=== PATIENT | male | born 1960 | race Caucasian/White ===

== ENCOUNTER 2016-09-12 06:10 | Inpatient (IN) | payer MEDICAID, OTHER ==
[~2016-09-12] VITALS: Ht 182.9 cm; Wt 102.7 kg
[2016-09-12] VITALS (10 sets, daily range): BP systolic 77–121; BP diastolic 58–73; PULSE 107–126; RESP 18–20; TEMP 96.6–97.3; O2SAT 87–100
[~2016-09-12 06:10] MED LIST: EPINEPHrine HCL (1:10,000) 1 MG/10 ML SYRINGE IV ONE; NOREPINEPHRINE 4 MG/4 ML AMP IV ONE; SODIUM BICARBONATE 8.4% INJ 50 MEQ/50 ML SYR IV ONE
[2016-09-12] MEDS ORDERED: ONDANSETRON HCL 4 MG/2 ML VIAL ONE (06:15)
[2016-09-12] MEDS ORDERED: PROPOFOL 1000 MG/100 ML INJ 100 ML ONE (06:33)
[2016-09-12 06:34] LABS: BASOPHIL % 0.3 % (0.0-2.0); EOSINOPHIL # 0.2 TH/MM3 (0-0.4); EOSINOPHIL % 1.3 % (0.0-4.0); HEMATOCRIT 33.4 % (39.0-51.0); HEMO FLAGS DIFF FINAL; I-STAT POTASSIUM 3.2 MMOL/L (3.5-4.9); LYMPH % 19.1 % (9.0-44.0); LYMPHOCYTE # 2.9 TH/MM3 (1.0-4.8); MEAN CELL VOLUME 88.8 FL (80.0-100.0); MEAN CORPUSCULAR HEMOGLOBIN 31.1 PG (27.0-34.0); MONO % 6.8 % (0.0-8.0); NEUT % 72.5 % (16.0-70.0); PLATELET COUNT 298 TH/MM3 (150-450); RED BLOOD COUNT 3.76 MIL/MM3 (4.50-5.90); RED CELL DISTRIBUTION WIDTH 13.3 % (11.6-17.2); WHITE BLOOD COUNT 15.2 TH/MM3 (4.0-11.0)
[2016-09-12] MEDS ORDERED: fentaNYL CITRATE 250 MCG/5 ML AMP ONE (06:41)
[2016-09-12 06:45] LABS: INTERNATIONAL NORMALIZED RATIO 1.1 RATIO; PROTHROMBIN TIME - PATIENT 12.3 SEC (9.8-11.6)
[2016-09-12 06:46] LABS: APTT (PATIENT) 23.1 SEC (24.3-30.1)
[2016-09-12] MEDS ORDERED: DIPHTH/TETANUS/ACEL PERTUSSIS (BOOSTER) 0.5 ML VIAL/PFS IM ONE (06:49)
[2016-09-12] MEDS ORDERED: ceFAZolin 2 GM PREMIX 50 ML IV STA (06:50)
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
[2016-09-12] MEDS ORDERED: SODIUM CHLOR 0.9% 1000 ML INJ 1,000 ML IV ONE (07:00)
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
[2016-09-12] MEDS ORDERED: TRANEXAMIC ACID INJ 1,000 MG/10 ML AMP ONE ×2 (07:11→07:14)
[2016-09-12] MEDS ORDERED: IOHEXOL 350 MG/ML 10 ML VIAL (for RAD DIAG) IV ONE (07:17)
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
[2016-09-12 07:46] LABS: BLOOD GAS BASE EXCESS -5.8 mmol/L (-2-2); BLOOD GAS CARBOXYHEMOGLOBIN 1.5 % (0-4); BLOOD GAS HCO3 20 mmol/L (22-26); BLOOD GAS METHEMOGLOBIN 2.3 % (0-2); BLOOD GAS O2 HGB SATURATION 96 % (90-100); BLOOD GAS OXYGEN CONTENT 17.8 Vol % (12.0-20.0); BLOOD GAS PCO2 46 mmHg (38-42); BLOOD GAS PO2 510 mmHG (61-120); BLOOD GAS TOTAL HGB 12.2 G/DL (12.0-16.0); CRITICAL VALUE YES; DRAW SITE RT FEMORAL; FIO2 100 %; NUMBER OF ARTERIAL PUNCTURES 1; OXYGEN DEVICE VENTILATOR; STAT YES; TEMP CORR TO 98.6; VENT SETTINGS AC 600/12/+5PEEP
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
[2016-09-12] MEDS ORDERED: TERBUTALINE INJ 1 MG/ML AMP SQ PRN (08:45)
[2016-09-12 08:59] LABS: HEMATOCRIT 30.9 % (39.0-51.0); MEAN CELL VOLUME 84.9 FL (80.0-100.0); MEAN CORPUSCULAR HEMOGLOBIN 29.3 PG (27.0-34.0); MEAN CORPUSCULAR HGB CONC 34.6 % (32.0-36.0); PLATELET COUNT 57 TH/MM3 (150-450); RED BLOOD COUNT 3.64 MIL/MM3 (4.50-5.90); RED CELL DISTRIBUTION WIDTH 14.9 % (11.6-17.2)
[2016-09-12] MEDS: NOREPINEPHRINE-DEXTROSE DRIP 250 ML IV SCH ×3 (09:00→15:00)
[2016-09-12 09:10] LABS: BLOOD GAS BASE EXCESS -4.7 mmol/L (-2-2); BLOOD GAS HCO3 20 mmol/L (22-26); BLOOD GAS METHEMOGLOBIN 1.1 % (0-2); BLOOD GAS O2 HGB SATURATION 97 % (90-100); BLOOD GAS OXYGEN CONTENT 14.5 Vol % (12.0-20.0); BLOOD GAS PCO2 35 mmHg (38-42); BLOOD GAS PO2 154 mmHg (61-120); BLOOD GAS TOTAL HGB 10.4 G/DL (12.0-16.0); CRITICAL VALUE NO; OXYGEN DEVICE VENTILATOR; TEMP CORR TO 98.6
[2016-09-12 09:12] LABS: REVIEW FLAG FINAL
[2016-09-12 09:14] LABS: DRAW SITE ART LINE; FIO2 50 %; STAT NO
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
[2016-09-12 09:19] LABS: CALCIUM-PROTEIN CORRECTED 8.8 MG/DL (8.5-10.1); POTASSIUM 3.6 MEQ/L (3.5-5.1); TOTAL BILIRUBIN ADULT 0.6 MG/DL (0.2-1.0)
--- NOTE | 2016-09-12 09:36 | PD.PROCEDR ---
Procedure Note Procedure DATE: 09/12/2016 ARTERIAL LINE PLACEMENT: Right axillary artery. Ultrasound-guided INDICATION: Hemodynamic access CONSENT Informed consent for procedure was obtained. DESCRIPTION OF THE PROCEDURE The patient was placed in supine position. The skin was cleansed with Chloraprep. Additional barrier precautions included large sterile drape, sterile gloves, sterile gown, face mask, and hat. 1 % lidocaine was used for local anesthesia. Under direct ultrasound guidance and on first attempt, the right axillary artery was accessed with an introducer needle. The guide wire was advanced. Using Seldinger technique a 20 Cambodian arterial catheter was advanced to a depth of 12 centimeters. The guide wire was removed. The single port had return of bright red pulsatile blood and flushed easily with saline. The arterial line was secured with 2.0 silk. A sterile dressing with antibiotic disc was applied. ESTIMATED BLOOD LOSS: Minimal COMPLICATIONS: No apparent complications. Tab Berkowitz MD Sep 12, 2016 09:36
--- NOTE | 2016-09-12 09:53 | EC ---
Study Study Date:09/12/2016 STUDY CONCLUSIONS SUMMARY - Left ventricle: The cavity size was normal. Wall thickness was increased in a pattern of mild LVH. Systolic function was normal. The estimated ejection fraction was in the range of 65% to 70%. - Mitral valve: Mild regurgitation. - Tricuspid valve: There was a large, mobile echo-density on the tricuspid valve, concerning for thrombus. Mild regurgitation. - Pulmonary arteries: PA peak pressure: 34mm Hg (S). - Pericardium, extracardiac: There was a left pleural effusion. If LV function is below 40, please consider prescribing an ACEI or ARB or document rationale for non-use. PROCEDURE DATA STUDY STATUS: Elective. Procedure: Transthoracic echocardiography. Image quality was fair. The study was technically limited due to poor acoustic window availability. Scanning was performed from the parasternal, apical, and subcostal acoustic windows. Study completion: The patient tolerated the procedure well. Transthoracic echocardiography. M-mode, complete 2D, complete spectral Doppler, and color Doppler. Patient status: Inpatient. CARDIAC ANATOMY LEFT VENTRICLE: The cavity size was normal. Wall thickness was increased in a pattern of mild LVH. Systolic function was normal. The estimated ejection fraction was in the range of 65% to 70%. AORTIC VALVE: The valve appears to be grossly normal. Probably trileaflet. Doppler: There was no stenosis. No significant regurgitation. Valve area: 2.13cm^2 (Vmax). Peak gradient: 18mm Hg (S). MITRAL VALVE: The valve appears to be grossly normal. Doppler: There was no evidence for stenosis. Mild regurgitation. LEFT ATRIUM: The atrium was normal in size. RIGHT VENTRICLE: The cavity size was normal. PULMONIC VALVE: The valve appears to be grossly normal. Doppler: There was no evidence for stenosis. No significant regurgitation. TRICUSPID VALVE: There was a large, mobile echo-density on the tricuspid valve, concerning for thrombus. Doppler: There was no evidence for stenosis. Mild regurgitation. PERICARDIUM: There was no pericardial effusion. Pleura: There was a left pleural effusion. BASIC MEASUREMENTS ADULT NORMAL Left ventricle LV internal dimension, ED, chordal level, *34.8 mm 43-52 PLAX LV internal dimension, ES, chordal level, 25.6 mm 23-38 PLAX Fractional shortening, chordal level, PLAX *26 % >29 LV posterior wall thickness, ED 10.8 mm IVS/LVPW ratio, ED 1.05 <1.3 Ventricular septum Septal thickness, ED 11.3 mm Aortic valve Leaflet separation 24 mm 15-26 BASIC MEASUREMENTS ADULT NORMAL Aortic valve Leaflet separation 24 mm 15-26 Aorta Root diameter, ED 27 mm 20-37 Left atrium Anterior-posterior dimension, ES 26 mm 19-40 LA/aortic root ratio 0.96 DOPPLER MEASUREMENTS ADULT NORMAL Main pulmonary artery Pressure, S *34 mm Hg =30 Aortic valve Peak velocity, S 212 cm/s Peak gradient, S 18 mm Hg Valve area, Vmax 2.13 cm^2 Mitral valve Peak E-wave velocity 57.8 cm/s Peak A-wave velocity 67.6 cm/s Deceleration time *130 ms 150-230 Peak E/A ratio 0.9 Maximal regurgitant velocity 263 cm/s Tricuspid valve Regurgitant peak velocity 243 cm/s Peak RV-RA gradient, S 24 mm Hg Maximal regurgitant velocity 243 cm/s Right ventricle RV pressure, S *34 mm Hg <30 LEGEND: Mean values are shown as u=mean value. Asterisk (*) angelo values outside specified normal range. Amended Jaswant Cabello [id number]
[2016-09-12 10:49] LABS: APTT (PATIENT) 71.7 SEC (24.3-30.1); PROTHROMBIN TIME - PATIENT GREATER THAN 180.0 SEC (9.8-11.6)
[2016-09-12 10:52] LABS: INTERNATIONAL NORMALIZED RATIO GREATER THAN 14.5 RATIO
[2016-09-12 11:17] LABS: BLOOD GAS BASE EXCESS -11.7 mmol/L (-2-2); BLOOD GAS CARBOXYHEMOGLOBIN 0.5 % (0-4); BLOOD GAS HCO3 14 mmol/L (22-26); BLOOD GAS METHEMOGLOBIN 0.8 % (0-2); BLOOD GAS O2 HGB SATURATION 98 % (90-100); BLOOD GAS OXYGEN CONTENT 15.6 Vol % (12.0-20.0); BLOOD GAS PCO2 32 mmHg (38-42); BLOOD GAS PO2 207 mmHg (61-120); TEMP CORR TO 98.6
[2016-09-12 11:18] LABS: CRITICAL VALUE YES; OXYGEN DEVICE VENT
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
[2016-09-12 11:19] LABS: DRAW SITE ARTLINE; FIO2 50 %; VENT SETTINGS PRVC/12/600/PEEP5
[2016-09-12] MEDS: LACTATED RINGER'S 1000 ML INJ 1,000 ML IV SCH ×4 (11:30→17:00)
[2016-09-12 11:31] LABS: HEMATOCRIT 33.2 % (39.0-51.0); REVIEW FLAG FINAL
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
[2016-09-12] MEDS ORDERED: GLUCAGON 1 MG/ML VIAL OTHER PRN (12:00)
[2016-09-12] MEDS ORDERED: RESP: ALBUTEROL 2.5 MG/IPRATROPIUM 0.5 MG NEB (PRN) NEB (12:00)
[2016-09-12] MEDS ORDERED: ONDANSETRON HCL 4 MG/2 ML VIAL IV PUSH PRN (12:00)
[2016-09-12] MEDS ORDERED: DEXTROSE 50% IN WATER 50 ML VIAL(D50) IV PUSH PRN (12:00)
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
[2016-09-12] MEDS ORDERED: Gentamicin Consult Pharmacy 1 EA OTHER SCH (13:00)
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
[2016-09-12] MEDS: PANTOPRAZOLE SODIUM 40 MG VIAL IV PUSH SCH (13:19)
[2016-09-12] MEDS: fentaNYL DRIP 250 ML IV SCH (13:24)
[2016-09-12] MEDS: INSULIN ASPART SUPPLEMENTAL SCALE SQ SCH ×2 (14:00→21:00)
[2016-09-12] MEDS ORDERED: GENTAMICIN INJ 400 MG in SODIUM CHLORIDE 0.9% INJ 100 ML IV ONE (15:00)
[2016-09-12 15:03] LABS: MEAN CELL VOLUME 83.6 FL (80.0-100.0); MEAN CORPUSCULAR HEMOGLOBIN 28.8 PG (27.0-34.0); MEAN CORPUSCULAR HGB CONC 34.4 % (32.0-36.0); PLATELET COUNT 77 TH/MM3 (150-450); RED BLOOD COUNT 2.25 MIL/MM3 (4.50-5.90); RED CELL DISTRIBUTION WIDTH 15.7 % (11.6-17.2); WHITE BLOOD COUNT 9.7 TH/MM3 (4.0-11.0)
[2016-09-12 15:11] LABS: REVIEW FLAG FINAL
[2016-09-12 15:12] LABS: HEMATOCRIT 18.8 % (39.0-51.0)
[2016-09-12 15:36] LABS: APTT (PATIENT) 40.7 SEC (24.3-30.1); INTERNATIONAL NORMALIZED RATIO 1.3 RATIO; PROTHROMBIN TIME - PATIENT 15.1 SEC (9.8-11.6)
[2016-09-12] MEDS: RESP: ALBUTEROL 2.5 MG/IPRATROPIUM 0.5 MG NEB (SCH) NEB ×2 (16:00→20:53)
[2016-09-12] MEDS ORDERED: PROTHROMBIN COMPLEX CONC INJ 1,500 UNITS in SYRINGE/BAG 1 EA IV ONE (16:00)
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
[2016-09-12] MEDS ORDERED: DESMOPRESSIN ACETATE 4 MCG/ML VIAL IV PUSH ONE (18:00)
[2016-09-12] MEDS ORDERED: IODIXANOL 320 MG/ML 50 ML VIAL (for RAD SPEC) I-ARTERIAL ONE (18:06)
[2016-09-12] MEDS ORDERED: CHLORHEXIDINE GLUCONATE 2 % 1 PACK (2 CLOTHS) TOP PRN (18:45)
[2016-09-12] MEDS ORDERED: MAGNESIUM HYDROXIDE SUSP 30 ML CUP PO PRN (18:45)
[2016-09-12] MEDS ORDERED: MISCELLANEOUS NURSING INFORMATION XX SCH (18:45)
[2016-09-12] MEDS: CHLORHEXIDINE 0.12% (ORAL KIT) 15 ML CUP MT SCH (20:00)
[2016-09-12 20:24] LABS: BLOOD GAS BASE EXCESS -2.5 mmol/L (-2-2); BLOOD GAS CARBOXYHEMOGLOBIN 1.3 % (0-4); BLOOD GAS HCO3 23 mmol/L (22-26); BLOOD GAS METHEMOGLOBIN 0.8 % (0-2); BLOOD GAS O2 HGB SATURATION 85 % (90-100); BLOOD GAS OXYGEN CONTENT 10.7 Vol % (12.0-20.0); BLOOD GAS PCO2 52 mmHg (38-42); BLOOD GAS PO2 56 mmHg (61-120); BLOOD GAS TOTAL HGB 8.8 G/DL (12.0-16.0); CRITICAL VALUE YES; OXYGEN DEVICE VENTILATOR; TEMP CORR TO 98.6
[2016-09-12 20:25] LABS: DRAW SITE ART LINE; FIO2 100 %; STAT YES; VENT SETTINGS PRVC/AC
[2016-09-12] MEDS: DOCUSATE SODIUM 100 MG CAP PO SCH (20:37)
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
[2016-09-12 21:15] LABS: HEMATOCRIT 25.6 % (39.0-51.0); MEAN CELL VOLUME 81.7 FL (80.0-100.0); MEAN CORPUSCULAR HEMOGLOBIN 28.2 PG (27.0-34.0); MEAN CORPUSCULAR HGB CONC 34.5 % (32.0-36.0); PLATELET COUNT 58 TH/MM3 (150-450); RED BLOOD COUNT 3.13 MIL/MM3 (4.50-5.90); RED CELL DISTRIBUTION WIDTH 15.6 % (11.6-17.2); WHITE BLOOD COUNT 8.6 TH/MM3 (4.0-11.0)
[2016-09-12 21:19] LABS: REVIEW FLAG FINAL
[2016-09-12 21:23] LABS: APTT (PATIENT) 30.4 SEC (24.3-30.1); PROTHROMBIN TIME - PATIENT 11.6 SEC (9.8-11.6)
[2016-09-12] MEDS ORDERED: DEXTROSE 50% IN WATER 50 ML SYRINGE ONE (21:58)
[2016-09-12 21:59] LABS: BICARBONATE 25.6 MEQ/L (21.0-32.0); POTASSIUM 4.1 MEQ/L (3.5-5.1)
[2016-09-12 22:14] LABS: CALCIUM-PROTEIN CORRECTED 7.7 MG/DL (8.5-10.1); THYROXINE (T4) 3.5 MCG/DL (4.5-12.1)
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
[2016-09-12 22:31] LABS: BLOOD GAS BASE EXCESS -4.3 mmol/L (-2-2); BLOOD GAS CARBOXYHEMOGLOBIN 1.1 % (0-4); BLOOD GAS HCO3 21 mmol/L (22-26); BLOOD GAS METHEMOGLOBIN 0.8 % (0-2); BLOOD GAS O2 HGB SATURATION 88 % (90-100); BLOOD GAS OXYGEN CONTENT 10.7 Vol % (12.0-20.0); BLOOD GAS PCO2 46 mmHg (38-42); BLOOD GAS PO2 61 mmHg (61-120); BLOOD GAS TOTAL HGB 8.6 G/DL (12.0-16.0); CRITICAL VALUE YES; DRAW SITE ART LINE; FIO2 100 %; OXYGEN DEVICE VENTILATOR; TEMP CORR TO 98.6; VENT SETTINGS PC/AC
[2016-09-12 22:32] LABS: STAT YES
[2016-09-12 22:33] LABS: CKMB 38.8 NG/ML (0.5-3.6)
[2016-09-12 23:29] LABS: BLOOD GAS BASE EXCESS -2.9 mmol/L (-2-2); BLOOD GAS CARBOXYHEMOGLOBIN 1.1 % (0-4); BLOOD GAS HCO3 23 mmol/L (22-26); BLOOD GAS METHEMOGLOBIN 0.8 % (0-2); BLOOD GAS O2 HGB SATURATION 90 % (90-100); BLOOD GAS OXYGEN CONTENT 11.1 Vol % (12.0-20.0); BLOOD GAS PCO2 46 mmHg (38-42); BLOOD GAS PO2 65 mmHg (61-120); BLOOD GAS TOTAL HGB 8.7 G/DL (12.0-16.0); CRITICAL VALUE NO; OXYGEN DEVICE VENTILATOR; TEMP CORR TO 98.6; VENT SETTINGS BIPHASIC
[2016-09-12 23:30] LABS: DRAW SITE ART LINE; FIO2 100 %; STAT NO
[2016-09-13] VITALS (16 sets, daily range): BP systolic 80–99; BP diastolic 52–62; PULSE 79–124; RESP 20–25; TEMP 99.1–100.6; O2SAT 90–100
[2016-09-13 00:17] LABS: HEMATOCRIT 24.8 % (39.0-51.0); MEAN CELL VOLUME 81.2 FL (80.0-100.0); MEAN CORPUSCULAR HEMOGLOBIN 28.6 PG (27.0-34.0); MEAN CORPUSCULAR HGB CONC 35.2 % (32.0-36.0); PLATELET COUNT 64 TH/MM3 (150-450); RED BLOOD COUNT 3.06 MIL/MM3 (4.50-5.90); RED CELL DISTRIBUTION WIDTH 15.1 % (11.6-17.2); WHITE BLOOD COUNT 8.7 TH/MM3 (4.0-11.0)
[2016-09-13 00:24] LABS: REVIEW FLAG FINAL
[2016-09-13 00:34] LABS: APTT (PATIENT) 29.8 SEC (24.3-30.1); PROTHROMBIN TIME - PATIENT 11.6 SEC (9.8-11.6)
[2016-09-13 00:40] LABS: BLOOD GAS BASE EXCESS -4.7 mmol/L (-2-2); BLOOD GAS CARBOXYHEMOGLOBIN 1.2 % (0-4); BLOOD GAS HCO3 21 mmol/L (22-26); BLOOD GAS METHEMOGLOBIN 1.1 % (0-2); BLOOD GAS O2 HGB SATURATION 94 % (90-100); BLOOD GAS OXYGEN CONTENT 10.7 Vol % (12.0-20.0); BLOOD GAS PCO2 44 mmHg (38-42); BLOOD GAS PO2 83 mmHg (61-120); CRITICAL VALUE NO; OXYGEN DEVICE VENTILATOR; TEMP CORR TO 98.6
[2016-09-13 00:41] LABS: DRAW SITE ART LINE; FIO2 100 %; STAT NO; VENT SETTINGS APRV
[2016-09-13] MEDS ORDERED: [UNRECOGNIZED DRUG - REMARK] XX ONE (01:00)
[2016-09-13 01:24] LABS: BLOOD GAS VENOUS BASE EXCESS -12.9 mmol/L (-2-2); BLOOD GAS VENOUS HCO3 15 mmol/L (22-26); BLOOD GAS VENOUS O2 CONTENT 7.2 Vol % (9.0-17.0); BLOOD GAS VENOUS O2 HGB SAT 82 % (70-76); BLOOD GAS VENOUS PCO2 52 mmHg (44-48); BLOOD GAS VENOUS PO2 61 mmHg (35-40); CRITICAL VALUE YES; OXYGEN DEVICE VENTILATOR; TEMP CORR TO 98.6
[2016-09-13 01:25] LABS: DRAW SITE CORDIS; FIO2 100 %; STAT NO; VENT SETTINGS APRV
--- NOTE | 2016-09-13 02:04 | RADRPT ---
EXAM DATE/TIME: 09/13/2016 01:48 [facility] COMPARISON: CHEST SINGLE AP, September 12, 2016, 20:34. INDICATIONS : Trauma, chest contusion MEDICAL HISTORY : Unknown SURGICAL HISTORY : Unknown ENCOUNTER: Subsequent ACUITY: 2 days PAIN SCORE: Non-responsive. LOCATION: Bilateral chest FINDINGS: Single portable frontal view of the chest shows an endotracheal tube with the tip 2 cm cephalad to th e sahil. Nasogastric tube is coiled within the fundus of the stomach. A sheath is seen involving the right upper chest. Bibasilar parenchymal consolidation is new from the prior study. Suspected small posterior layering pleural effusions. Heart is normal in size. CONCLUSION: Suspected posterior layering small pleural effusions with bibasilar infiltrates. Jude Mast Jr., MD on September 13, 2016 at 2:01 Board Certified Radiologist. This report was verified electronically.
[2016-09-13] MEDS: CHLORHEXIDINE GLUCONATE 2 % 1 PACK (2 CLOTHS) TOP SCH (02:13)
[2016-09-13] MEDS: RESP: ALBUTEROL 2.5 MG/IPRATROPIUM 0.5 MG NEB (SCH) NEB ×4 (03:44→20:45)
[2016-09-13 04:18] LABS: HEMATOCRIT 24.3 % (39.0-51.0); MEAN CELL VOLUME 81.1 FL (80.0-100.0); MEAN CORPUSCULAR HGB CONC 34.5 % (32.0-36.0); PLATELET COUNT 64 TH/MM3 (150-450); RED CELL DISTRIBUTION WIDTH 15.7 % (11.6-17.2); WHITE BLOOD COUNT 11.8 TH/MM3 (4.0-11.0)
[2016-09-13 04:19] LABS: REVIEW FLAG FINAL
[2016-09-13 04:28] LABS: APTT (PATIENT) 30.4 SEC (24.3-30.1); INTERNATIONAL NORMALIZED RATIO 1.1 RATIO; PROTHROMBIN TIME - PATIENT 11.9 SEC (9.8-11.6)
[2016-09-13 04:47] LABS: BICARBONATE 25.1 MEQ/L (21.0-32.0); MAGNESIUM 1.2 MG/DL (1.5-2.5); POTASSIUM 4.6 MEQ/L (3.5-5.1)
[2016-09-13 05:15] LABS: CKMB 75.2 NG/ML (0.5-3.6)
[2016-09-13 05:16] LABS: CALCIUM-PROTEIN CORRECTED 7.8 MG/DL (8.5-10.1)
[2016-09-13] MEDS: INSULIN ASPART SUPPLEMENTAL SCALE SQ SCH ×4 (05:27→20:36)
[2016-09-13] MEDS: LACTATED RINGER'S 1000 ML INJ 1,000 ML IV SCH ×2 (05:27→14:47)
[2016-09-13 05:54] LABS: BLOOD GAS BASE EXCESS -2.9 mmol/L (-2-2); BLOOD GAS CARBOXYHEMOGLOBIN 0.8 % (0-4); BLOOD GAS HCO3 23 mmol/L (22-26); BLOOD GAS METHEMOGLOBIN 0.9 % (0-2); BLOOD GAS O2 HGB SATURATION 97 % (90-100); BLOOD GAS OXYGEN CONTENT 13.1 Vol % (12.0-20.0); BLOOD GAS PCO2 49 mmHg (38-42); BLOOD GAS PO2 124 mmHg (61-120); BLOOD GAS TOTAL HGB 9.5 G/DL (12.0-16.0); TEMP CORR TO 98.6
[2016-09-13 05:55] LABS: CRITICAL VALUE YES; OXYGEN DEVICE VENTILATOR
[2016-09-13 05:56] LABS: DRAW SITE ART LINE; FIO2 100 %; STAT NO; VENT SETTINGS APRV/BI
[2016-09-13] MEDS ORDERED: ICU - POTASSIUM PHOSPHATE 30 MMOL/NS 250 ML IV PRN ×2 (07:30)
[2016-09-13] MEDS ORDERED: ICU - MAGNESIUM SULFATE 2 GM/NS 100 ML IV PRN ×2 (07:30)
[2016-09-13] MEDS ORDERED: ICU - SODIUM PHOSPHATE 30 MMOL/NS 250 ML IV PRN ×2 (07:30)
[2016-09-13] MEDS ORDERED: ICU - D/C ICU ELECTROLYTE ORDERS XX PRN (07:30)
[2016-09-13] MEDS ORDERED: ICU - POTASSIUM CHLORIDE/AQUEOUS SOLN 20 MEQ/100 ML IVPB IV PRN (07:30)
[2016-09-13] MEDS ORDERED: ICU - CALL ORDERING PHYSICIAN XX PRN (07:30)
[2016-09-13] MEDS ORDERED: ICU - MAGNESIUM OXIDE 400 MG TAB PO PRN (07:30)
[2016-09-13] MEDS ORDERED: ICU - POTASSIUM CHLORIDE/AQUEOUS SOLN 40 MEQ/100 ML IVPB IV PRN (07:30)
[2016-09-13] MEDS ORDERED: ICU - MAGNESIUM SULFATE 4 GM/NS 100 ML IV PRN ×2 (07:30)
[2016-09-13] MEDS ORDERED: ICU - POTASSIUM CHLORIDE 10% LIQUID 40 MEQ/30 ML CUP PO PRN (07:30)
[2016-09-13] MEDS ORDERED: ICU - POTASSIUM PHOSPHATE MONOBASIC 500 MG TAB PO/TUBE PRN (07:30)
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
[2016-09-13] MEDS: CHLORHEXIDINE 0.12% (ORAL KIT) 15 ML CUP MT SCH ×2 (08:00→20:36)
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
[2016-09-13] MEDS: DOCUSATE SODIUM 100 MG CAP PO SCH ×2 (09:00→20:37)
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
[2016-09-13 09:05] LABS: HEMATOCRIT 22.4 % (39.0-51.0); MEAN CELL VOLUME 81.3 FL (80.0-100.0); MEAN CORPUSCULAR HEMOGLOBIN 27.7 PG (27.0-34.0); MEAN CORPUSCULAR HGB CONC 34.1 % (32.0-36.0); PLATELET COUNT 69 TH/MM3 (150-450); RED BLOOD COUNT 2.75 MIL/MM3 (4.50-5.90); RED CELL DISTRIBUTION WIDTH 15.6 % (11.6-17.2)
[2016-09-13 09:08] LABS: REVIEW FLAG FINAL
[2016-09-13 09:27] LABS: APTT (PATIENT) 32.1 SEC (24.3-30.1); INTERNATIONAL NORMALIZED RATIO 1.1 RATIO; PROTHROMBIN TIME - PATIENT 12.6 SEC (9.8-11.6)
[2016-09-13] MEDS ORDERED: FUROSEMIDE 20 MG/2 ML VIAL IV ONE (09:30)
[2016-09-13] MEDS ORDERED: SODIUM CHLOR 0.9% 250 ML INJ 250 ML IV ONE (09:30)
[2016-09-13] MEDS ORDERED: MAGNESIUM SULFATE 1 GM PREMIX 100 ML ONE ×2 (09:32→09:48)
[2016-09-13] MEDS ORDERED: CALCIUM GLUCONATE 10% 1 GM/10 ML VIAL ONE ×2 (09:33→16:13)
[2016-09-13 09:49] LABS: BLOOD GAS BASE EXCESS -2.2 mmol/L (-2-2); BLOOD GAS CARBOXYHEMOGLOBIN 1.1 % (0-4); BLOOD GAS HCO3 23 mmol/L (22-26); BLOOD GAS METHEMOGLOBIN 1.1 % (0-2); BLOOD GAS O2 HGB SATURATION 95 % (90-100); BLOOD GAS OXYGEN CONTENT 10.3 Vol % (12.0-20.0); BLOOD GAS PCO2 47 mmHg (38-42); BLOOD GAS PO2 90 mmHg (61-120); BLOOD GAS TOTAL HGB 7.7 G/DL (12.0-16.0); CRITICAL VALUE NO; OXYGEN DEVICE VENTILATOR; TEMP CORR TO 98.6
[2016-09-13 09:51] LABS: DRAW SITE ART LINE; FIO2 70 %; STAT NO
[2016-09-13] MEDS: fentaNYL DRIP 250 ML IV SCH (09:56)
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
[2016-09-13] MEDS ORDERED: MIDAZOLAM HCL 2 MG/2 ML VIAL ONE (10:09)
[2016-09-13] MEDS ORDERED: KETAMINE HCL 500 MG/5 ML VIAL ONE (10:09)
[2016-09-13] MEDS ORDERED: VANCOMYCIN HCL 1000 MG VIAL ONE (10:44)
[2016-09-13] MEDS ORDERED: ceFAZolin INJ 1,000 MG VIAL ONE (10:44)
[2016-09-13] MEDS ORDERED: BACITRACIN TOP OINT 15 GM TUBE ONE (10:44)
--- NOTE | 2016-09-13 10:46 | EKG ---
Date Performed: 09/13/2016 Time Performed: 05:07:50 PTAGE: 55 years EKG: Sinus tachycardia Generalized low QRS voltages Borderline ECG NO PREVIOUS TRACING DOCTOR: Jonah Harmon Interpretating Date/Time 09/13/2016 10:45:45
[2016-09-13] MEDS ORDERED: LACTATED RINGER'S 1000 ML INJ 1,000 ML IV ONE (12:00)
[2016-09-13 12:05] LABS: BLOOD GAS BASE EXCESS -2.9 mmol/L (-2-2); BLOOD GAS CARBOXYHEMOGLOBIN 1.3 % (0-4); BLOOD GAS HCO3 23 mmol/L (22-26); BLOOD GAS METHEMOGLOBIN 1.2 % (0-2); BLOOD GAS O2 HGB SATURATION 96 % (90-100); BLOOD GAS OXYGEN CONTENT 13.2 Vol % (12.0-20.0); BLOOD GAS PCO2 48 mmHg (38-42); BLOOD GAS PO2 129 mmHg (61-120); BLOOD GAS TOTAL HGB 9.6 G/DL (12.0-16.0); TEMP CORR TO 98.6
[2016-09-13 12:06] LABS: CRITICAL VALUE YES; OXYGEN DEVICE OR; STAT YES
[2016-09-13 13:23] LABS: MEAN CELL VOLUME 80.5 FL (80.0-100.0); MEAN CORPUSCULAR HGB CONC 33.6 % (32.0-36.0); PLATELET COUNT 73 TH/MM3 (150-450); RED CELL DISTRIBUTION WIDTH 17.8 % (11.6-17.2); WHITE BLOOD COUNT 13.3 TH/MM3 (4.0-11.0)
[2016-09-13 13:27] LABS: REVIEW FLAG FINAL
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
[2016-09-13 13:54] LABS: BLOOD GAS BASE EXCESS -3.1 mmol/L (-2-2); BLOOD GAS HCO3 22 mmol/L (22-26); BLOOD GAS O2 HGB SATURATION 94 % (90-100); BLOOD GAS OXYGEN CONTENT 13.3 Vol % (12.0-20.0); BLOOD GAS PCO2 47 mmHg (38-42); BLOOD GAS PO2 79 mmHg (61-120); BLOOD GAS TOTAL HGB 10.1 G/DL (12.0-16.0); TEMP CORR TO 98.6
[2016-09-13 13:55] LABS: CRITICAL VALUE NO; OXYGEN DEVICE VENTILATOR
[2016-09-13 13:56] LABS: DRAW SITE ART LINE; FIO2 65 %; STAT NO
[2016-09-13] MEDS: GENTAMICIN 80 MG PREMIX 100 ML IV SCH ×2 (13:57→20:36)
[2016-09-13] MEDS: PANTOPRAZOLE SODIUM 40 MG VIAL IV PUSH SCH (13:58)
[2016-09-13 14:01] LABS: BICARBONATE 23.5 MEQ/L (21.0-32.0); MAGNESIUM 1.7 MG/DL (1.5-2.5); POTASSIUM 4.8 MEQ/L (3.5-5.1)
[2016-09-13 14:16] LABS: APTT (PATIENT) 34.4 SEC (24.3-30.1); INTERNATIONAL NORMALIZED RATIO 1.1 RATIO; PROTHROMBIN TIME - PATIENT 12.7 SEC (9.8-11.6)
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
--- NOTE | 2016-09-13 15:25 | RADRPT ---
EXAM DATE/TIME: 09/13/2016 11:09 [facility] COMPARISON: No previous studies available for comparison. INDICATIONS : External fixator pelvis. MEDICAL HISTORY : None. SURGICAL HISTORY : None. ENCOUNTER: Subsequent ACUITY: 2 days PAIN SCORE: Non-responsive. LOCATION: Pelvis. FINDINGS: Examination of the pelvis demonstrates spot film showing some external fixation the pelvis but the fi xation apparatus is not completely identified. There is marked widening of the left sacroiliac joint. CONCLUSION: 1. Widening of the left sacroiliac joint. Spot films reveal placement of external fixation. Wilmer Benitez MD on September 13, 2016 at 15:22 Board Certified Radiologist. This report was verified electronically.
--- NOTE | 2016-09-13 15:29 | RADRPT ---
EXAM DATE/TIME: 09/13/2016 11:09 [facility] COMPARISON: No previous studies available for comparison. INDICATIONS : External fixator left ankle. MEDICAL HISTORY : None. SURGICAL HISTORY : None. ENCOUNTER: Subsequent ACUITY: 2 days PAIN SCORE: Non-responsive. LOCATION: Left ankle. FINDINGS: Two view exam was performed of the left ankle. There is a comminuted fracture of the distal tibia an d fibula with mild residual displacement on AP and lateral views. CONCLUSION: 1. Comminuted fracture distal tibia and fibula. Mild displacement. Wilmer Benitez MD on September 13, 2016 at 15:24 Board Certified Radiologist. This report was verified electronically.
[2016-09-13] MEDS ORDERED: CALCIUM GLUCONATE 10% 1 GM/10 ML VIAL IV PUSH ONE (15:30)
--- NOTE | 2016-09-13 15:30 | RADRPT ---
EXAM DATE/TIME: 09/13/2016 11:09 [facility] COMPARISON: No previous studies available for comparison. INDICATIONS : External fixator right wrist. MEDICAL HISTORY : None. SURGICAL HISTORY : None. ENCOUNTER: Subsequent ACUITY: 2 days PAIN SCORE: Non-responsive. LOCATION: Right wrist. FINDINGS: Spot films reveal comminuted fracture of the distal radius and ulna with intra-articular extension. E xternal fixation present. Fracture fragments remain mildly displaced. CONCLUSION: 1. Comminuted fractures of distal radius and ulna. Wilmer Benitez MD on September 13, 2016 at 15:28 Board Certified Radiologist. This report was verified electronically.
[2016-09-13] MEDS ORDERED: CALCIUM GLUCONATE INJ 1 GM in SODIUM CHLORIDE 0.9% INJ 100 ML IV ONE (16:00)
[2016-09-13] MEDS: MAGNESIUM SULFATE 1 GM PREMIX 100 ML IV SCH ×2 (16:00→17:00)
[2016-09-13] MEDS ORDERED: GELATIN 12 MM/7 MM FOAM ONE (16:30)
[2016-09-13] MEDS: NOREPINEPHRINE-DEXTROSE DRIP 250 ML IV SCH (17:30)
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
[2016-09-13] MEDS: ceFAZolin 2 GM PREMIX 50 ML IV SCH (18:00)
[2016-09-14] VITALS (17 sets, daily range): BP systolic 94–132; BP diastolic 59–71; PULSE 7–126; RESP 17–24; TEMP 98.4–99.3; O2SAT 99–100
[2016-09-14] MEDS: LACTATED RINGER'S 1000 ML INJ 1,000 ML IV SCH ×3 (02:53→21:07)
[2016-09-14] MEDS: CHLORHEXIDINE GLUCONATE 2 % 1 PACK (2 CLOTHS) TOP SCH (02:53)
[2016-09-14] MEDS: ceFAZolin 2 GM PREMIX 50 ML IV SCH ×3 (02:53→17:33)
[2016-09-14] MEDS: RESP: ALBUTEROL 2.5 MG/IPRATROPIUM 0.5 MG NEB (SCH) NEB ×4 (03:37→20:22)
[2016-09-14 04:56] LABS: HEMATOCRIT 21.5 % (39.0-51.0); MEAN CORPUSCULAR HEMOGLOBIN 28.2 PG (27.0-34.0); MEAN CORPUSCULAR HGB CONC 35.6 % (32.0-36.0); PLATELET COUNT 73 TH/MM3 (150-450); RED BLOOD COUNT 2.72 MIL/MM3 (4.50-5.90); RED CELL DISTRIBUTION WIDTH 18.5 % (11.6-17.2); WHITE BLOOD COUNT 9.4 TH/MM3 (4.0-11.0)
[2016-09-14 05:02] LABS: REVIEW FLAG FINAL
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
[2016-09-14] MEDS: GENTAMICIN 80 MG PREMIX 100 ML IV SCH ×3 (05:10→20:16)
[2016-09-14 05:27] LABS: BICARBONATE 26.3 MEQ/L (21.0-32.0); MAGNESIUM 2.2 MG/DL (1.5-2.5); POTASSIUM 4.3 MEQ/L (3.5-5.1)
[2016-09-14 05:38] LABS: BLOOD GAS BASE EXCESS -1.3 mmol/L (-2-2); BLOOD GAS CARBOXYHEMOGLOBIN 1.1 % (0-4); BLOOD GAS HCO3 23 mmol/L (22-26); BLOOD GAS O2 HGB SATURATION 95 % (90-100); BLOOD GAS OXYGEN CONTENT 9.7 Vol % (12.0-20.0); BLOOD GAS PCO2 40 mmHg (38-42); BLOOD GAS PO2 86 mmHg (61-120); BLOOD GAS TOTAL HGB 7.2 G/DL (12.0-16.0); TEMP CORR TO 98.6
[2016-09-14 05:39] LABS: CRITICAL VALUE NO; OXYGEN DEVICE VENTILATOR
[2016-09-14 05:40] LABS: DRAW SITE ART LINE; FIO2 40 %; STAT NO
[2016-09-14] MEDS: INSULIN ASPART SUPPLEMENTAL SCALE SQ SCH ×4 (05:50→21:00)
[2016-09-14 05:52] LABS: CALCIUM-PROTEIN CORRECTED 8.2 MG/DL (8.5-10.1)
--- NOTE | 2016-09-14 06:40 | RADRPT ---
EXAM DATE/TIME: 09/14/2016 05:26 [facility] COMPARISON: CHEST SINGLE AP, September 13, 2016, 1:48. INDICATIONS : Evaluate for pulmonary disease. MEDICAL HISTORY : None. SURGICAL HISTORY : None. ENCOUNTER: Subsequent ACUITY: 2 days PAIN SCORE: Non-responsive. LOCATION: Bilateral chest FINDINGS: A single portable frontal view of the chest shows an endotracheal tube with the tip 3 cm proximal to the sahil. Nasogastric tube courses off the inferior margin of the film. Bilateral pleural effusions and basilar infiltrates are unchanged. Heart is normal in size. CONCLUSION: Unchanged bilateral pleural effusions and bibasilar infiltrates. Jude Mast Jr., MD on September 14, 2016 at 6:38 Board Certified Radiologist. This report was verified electronically.
--- NOTE | 2016-09-14 07:12 | PD.ORT.PN ---
Subjective Subjective Remarks POD 1 s/p exfix pelvis, right wrist, left ankle s/p left SI disruption s/p left wrist fx intubated/sedated Objective Vitals Vital Signs Date Time Temp Pulse Resp B/P Pulse Ox O2 Delivery O2 Flow Rate FiO2 09/14/16 06:00 111 09/14/16 04:21 100 45 09/14/16 04:00 111 09/14/16 04:00 45 09/14/16 04:00 98.6 111 23 98/59 100 09/14/16 02:00 107 09/14/16 01:00 100 45 09/14/16 00:00 45 09/14/16 00:00 99.3 110 23 94/59 100 09/14/16 00:00 110 09/13/16 22:00 97 45 09/13/16 22:00 110 09/13/16 20:49 100 45 09/13/16 20:00 107 09/13/16 20:00 99.1 107 21 98/54 100 09/13/16 20:00 45 09/13/16 18:20 45 09/13/16 17:11 100 50 09/13/16 17:00 50 09/13/16 16:00 79 09/13/16 16:00 99.5 79 20 95/60 98 09/13/16 14:00 60 09/13/16 12:15 99.7 107 21 99/59 100 09/13/16 12:15 107 09/13/16 12:10 90 100 09/13/16 11:00 100 60 09/13/16 09:05 99 70 09/13/16 08:00 115 09/13/16 08:00 100 09/13/16 08:00 100.4 115 25 80/52 100 I/O 09/13/16 09/13/16 09/13/16 09/14/16 09/14/16 09/14/16 07:00 15:00 23:00 07:00 15:00 23:00 Intake Total 943 ml 2118 ml 1053 ml 845 ml Output Total 300 ml 675 ml 600 ml 550 ml Balance 643 ml 1443 ml 453 ml 295 ml Intake IV Total 943 ml 1368 ml 1053 ml 845 ml Packed Cells 750 ml Output Urine Total 300 ml 675 ml 500 ml 550 ml Gastric Drainage Total 0 ml 0 ml 100 ml 0 ml # Bowel Movements 0 0 0 0 Result Diagram: 09/14/167 09/14/16 0447 Other Results Laboratory Tests Test 09/13/16 09/13/16 08:39 13:47 Prothrombin Time 12.6 SEC 12.7 SEC (9.8-11.6) (9.8-11.6) Prothromb Time International 1.1 RATIO 1.1 RATIO Ratio Imaging Last 24 hours Impressions Chest X-Ray 09/13/16 0600 Signed Impressions: Service Date/Time: Tuesday, September 13, 2016 01:48 - CONCLUSION: Suspected posterior layering small pleural effusions with bibasilar infiltrates. Jude Mast Jr., MD Objective Remarks BUE: splints intact. right wrist exfix in place with no drainage. LLE: +ankle exfix. proximal pin sites with bloody drainage. pelvis: +exfix. minimal drainage. Assessment & Plan Assessment and Plan 1) Open Book Pelvis with left SI joint disruption 2) Bilateral Distal Radius fxs 3) Left Distal TibFib Fxs -pin care BID -maintain splints on wrists -will plan on definitive fixation when patient healthier. possibly next week sometime. Jamshid Parish Sep 14, 2016 07:12
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
[2016-09-14] MEDS: CHLORHEXIDINE 0.12% (ORAL KIT) 15 ML CUP MT SCH ×2 (08:00→20:16)
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
[2016-09-14] MEDS: fentaNYL DRIP 250 ML IV SCH (08:38)
[2016-09-14] MEDS: DOCUSATE SODIUM 100 MG CAP PO SCH ×2 (09:00→20:16)
[2016-09-14] MEDS: PANTOPRAZOLE SODIUM 40 MG VIAL IV PUSH SCH (11:17)
[2016-09-14] MEDS ORDERED: IOHEXOL 350 MG/ML 50 ML BTL (for RAD DIAG) ONE (12:35)
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
[2016-09-14 15:14] LABS: BLOOD GAS BASE EXCESS 1.8 mmol/L (-2-2); BLOOD GAS CARBOXYHEMOGLOBIN 1.3 % (0-4); BLOOD GAS HCO3 25 mmol/L (22-26); BLOOD GAS O2 HGB SATURATION 94 % (90-100); BLOOD GAS OXYGEN CONTENT 9.7 Vol % (12.0-20.0); BLOOD GAS PCO2 37 mmHg (38-42); BLOOD GAS PO2 80 mmHg (61-120); BLOOD GAS TOTAL HGB 7.2 G/DL (12.0-16.0); CRITICAL VALUE NO; DRAW SITE ART LINE; FIO2 40 %; OXYGEN DEVICE VENTILATOR; STAT YES; TEMP CORR TO 98.6; VENT SETTINGS PRVC16/600/1.2IT/10+
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
[2016-09-15] VITALS (19 sets, daily range): BP systolic 133–160; BP diastolic 74–83; PULSE 116–130; RESP 16–19; TEMP 99–101.5; O2SAT 100
[2016-09-15] MEDS: RESP: ALBUTEROL 2.5 MG/IPRATROPIUM 0.5 MG NEB (SCH) NEB ×3 (00:57→21:31)
[2016-09-15] MEDS: CHLORHEXIDINE GLUCONATE 2 % 1 PACK (2 CLOTHS) TOP SCH (02:45)
[2016-09-15] MEDS: ceFAZolin 2 GM PREMIX 50 ML IV SCH (02:45)
[2016-09-15 04:33] LABS: MEAN CELL VOLUME 80.2 FL (80.0-100.0); MEAN CORPUSCULAR HGB CONC 34.9 % (32.0-36.0); PLATELET COUNT 90 TH/MM3 (150-450); RED BLOOD COUNT 2.48 MIL/MM3 (4.50-5.90); RED CELL DISTRIBUTION WIDTH 18.4 % (11.6-17.2); WHITE BLOOD COUNT 6.5 TH/MM3 (4.0-11.0)
[2016-09-15 04:44] LABS: REVIEW FLAG FINAL
[2016-09-15 04:47] LABS: HEMATOCRIT 19.9 % (39.0-51.0)
[2016-09-15 05:00] LABS: POTASSIUM 4.2 MEQ/L (3.5-5.1)
[2016-09-15 05:06] LABS: BLOOD GAS BASE EXCESS 1.2 mmol/L (-2-2); BLOOD GAS CARBOXYHEMOGLOBIN 1.5 % (0-4); BLOOD GAS HCO3 26 mmol/L (22-26); BLOOD GAS O2 HGB SATURATION 95 % (90-100); BLOOD GAS PCO2 42 mmHg (38-42); BLOOD GAS PO2 87 mmHg (61-120); BLOOD GAS TOTAL HGB 6.6 G/DL (12.0-16.0); CRITICAL VALUE YES; OXYGEN DEVICE VENTILATOR; TEMP CORR TO 98.6
[2016-09-15 05:07] LABS: DRAW SITE ALINE; FIO2 30 %; STAT NO; VENT SETTINGS SEE COMMENTS
[2016-09-15] MEDS: GENTAMICIN 80 MG PREMIX 100 ML IV SCH ×2 (06:00→12:39)
[2016-09-15] MEDS: INSULIN ASPART SUPPLEMENTAL SCALE SQ SCH ×2 (06:02→06:19)
[2016-09-15 07:15] LABS: HEMATOCRIT 21.9 % (39.0-51.0)
--- NOTE | 2016-09-15 07:26 | PD.ORT.PN ---
Subjective Subjective Remarks POD 2 s/p exfix pelvis, right wrist, left ankle s/p left SI disruption s/p left wrist fx intubated/sedated Objective Vitals Vital Signs Date Time Temp Pulse Resp B/P Pulse Ox O2 Delivery O2 Flow Rate FiO2 09/15/16 06:00 117 09/15/16 05:25 99.5 118 19 135/76 100 09/15/16 04:00 116 09/15/16 04:00 99.7 116 19 135/74 100 09/15/16 04:00 30 09/15/16 03:59 100 30 09/15/16 02:00 116 09/15/16 00:57 100 40 09/15/16 00:00 40 09/15/16 00:00 99.7 116 18 133/77 100 09/15/16 00:00 116 09/14/16 22:00 115 09/14/16 20:23 100 40 09/14/16 20:00 7 09/14/16 20:00 99.3 117 19 132/71 100 09/14/16 20:00 40 09/14/16 18:00 115 09/14/16 16:01 100 40 09/14/16 16:00 117 09/14/16 16:00 40 09/14/16 16:00 99.1 114 17 104/70 100 09/14/16 14:00 40 09/14/16 14:00 116 09/14/16 13:08 99 40 09/14/16 13:00 126 09/14/16 13:00 98.4 126 19 114/64 100 09/14/16 13:00 100 100 09/14/16 08:05 100 40 09/14/16 08:00 111 09/14/16 08:00 98.6 111 24 107/65 100 09/14/16 08:00 40 I/O 09/14/16 09/14/16 09/14/16 09/15/16 09/15/16 09/15/16 07:00 15:00 23:00 07:00 15:00 23:00 Intake Total 845 ml 885 ml 1019 ml 1015 ml Output Total 550 ml 725 ml 950 ml 950 ml Balance 295 ml 160 ml 69 ml 65 ml Intake IV Total 845 ml 885 ml 994 ml 935 ml Tube Feeding 25 ml 80 ml Output Urine Total 550 ml 725 ml 950 ml 950 ml Gastric Drainage Total 0 ml 0 ml 0 ml # Bowel Movements 0 0 0 0 Result Diagram: 09/15/1641409/15/16414 Imaging Last 24 hours Impressions Chest X-Ray 09/13/16 0600 Signed Impressions: Service Date/Time: Tuesday, September 13, 2016 01:48 - CONCLUSION: Suspected posterior layering small pleural effusions with bibasilar infiltrates. Jude Mast Jr., MD Objective Remarks BUE: splints intact. right wrist exfix in place with no drainage. LLE: +ankle exfix. proximal pin sites with bloody drainage. pelvis: +exfix. minimal drainage. Assessment & Plan Assessment and Plan 1) Open Book Pelvis with left SI joint disruption 2) Bilateral Distal Radius fxs 3) Left Distal TibFib Fxs -pin care BID -maintain splints on wrists -dialy dressing changes of left ankle -will plan on definitive fixation when patient healthier. possibly next week sometime. -sign consents Jamshid Parish Sep 15, 2016 07:26
[2016-09-15] MEDS ORDERED: LACTULOSE SYRUP 20 GM/30 ML CUP PO ONE (08:00)
[2016-09-15] MEDS ORDERED: SODIUM CHLOR 0.9% 250 ML INJ 250 ML IV ONE (09:15)
[2016-09-15] MEDS ORDERED: HEPARIN-D5W INJ 250 ML IV SCH (10:00)
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
[2016-09-15 11:31] LABS: APTT (PATIENT) 32.1 SEC (24.3-30.1); PROTHROMBIN TIME - PATIENT 10.7 SEC (9.8-11.6)
[2016-09-15] MEDS: PANTOPRAZOLE SODIUM 40 MG VIAL IV PUSH SCH (12:39)
[2016-09-15] MEDS: fentaNYL DRIP 250 ML IV SCH (12:40)
[2016-09-15] MEDS: CHLORHEXIDINE 0.12% (ORAL KIT) 15 ML CUP MT SCH (20:00)
[2016-09-15] MEDS: DOCUSATE SODIUM 100 MG CAP PO SCH (20:31)
[2016-09-15] MEDS: METOPROLOL TARTRATE 25 MG TAB PO SCH (20:31)
[2016-09-15] MEDS: oxyCODONE HCL ORAL CONC 20 MG/ML SYRINGE PO PRN (22:33)
[2016-09-16] VITALS (16 sets, daily range): BP systolic 142–159; BP diastolic 78–87; PULSE 109–119; RESP 16–21; TEMP 100.8–101.8; O2SAT 98–100
[2016-09-16 00:59] LABS: HEMATOCRIT 24.2 % (39.0-51.0); REVIEW FLAG FINAL
[2016-09-16] MEDS: oxyCODONE HCL ORAL CONC 20 MG/ML SYRINGE PO PRN ×4 (02:47→20:41)
[2016-09-16] MEDS: RESP: ALBUTEROL 2.5 MG/IPRATROPIUM 0.5 MG NEB (SCH) NEB ×2 (03:38→09:20)
[2016-09-16] MEDS: CHLORHEXIDINE GLUCONATE 2 % 1 PACK (2 CLOTHS) TOP SCH (04:00)
[2016-09-16 04:41] LABS: BLOOD GAS BASE EXCESS 0.1 mmol/L (-2-2); BLOOD GAS CARBOXYHEMOGLOBIN 1.7 % (0-4); BLOOD GAS HCO3 24 mmol/L (22-26); BLOOD GAS METHEMOGLOBIN 0.6 % (0-2); BLOOD GAS O2 HGB SATURATION 95 % (90-100); BLOOD GAS OXYGEN CONTENT 11.2 Vol % (12.0-20.0); BLOOD GAS PCO2 39 mmHg (38-42); BLOOD GAS PO2 89 mmHg (61-120); BLOOD GAS TOTAL HGB 8.3 G/DL (12.0-16.0); TEMP CORR TO 98.6
[2016-09-16 04:42] LABS: CRITICAL VALUE NO; OXYGEN DEVICE VENTILATOR
[2016-09-16 04:43] LABS: DRAW SITE ALINE; FIO2 30 %; STAT NO
[2016-09-16 05:24] LABS: POTASSIUM 4.2 MEQ/L (3.5-5.1)
--- NOTE | 2016-09-16 06:06 | RADRPT ---
EXAM DATE/TIME: 09/16/2016 04:30 [place] COMPARISON: CHEST SINGLE AP, September 14, 2016, 5:26. INDICATIONS : Shortness of breath. MEDICAL HISTORY : None. SURGICAL HISTORY : None. ENCOUNTER: Subsequent ACUITY: 4 - 6 days PAIN SCORE: Non-responsive. LOCATION: Bilateral chest FINDINGS: Endotracheal tube tip well above the sahil. Gastric tube is coiled in the stomach. There is persis tent consolidation in the left lower lung and patchy infiltrates in the right mid and lower lung, sim ilar to prior exam. The heart is normal size. CONCLUSION: Persistent bilateral lower lung infiltrates, left greater than right, stable. Jude Martines MD on September 16, 2016 at 6:04 Board Certified Radiologist. This report was verified electronically.
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
[2016-09-16] MEDS: CHLORHEXIDINE 0.12% (ORAL KIT) 15 ML CUP MT SCH ×2 (09:30→20:42)
[2016-09-16] MEDS: METOPROLOL TARTRATE 25 MG TAB PO SCH ×2 (09:30→20:41)
[2016-09-16] MEDS: DOCUSATE SODIUM 100 MG CAP PO SCH ×2 (09:30→20:41)
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
[2016-09-16] MEDS: PANTOPRAZOLE SODIUM 40 MG VIAL IV PUSH SCH (11:57)
[2016-09-16 18:09] LABS: HEMATOCRIT 25.3 % (39.0-51.0); REVIEW FLAG FINAL
--- NOTE | 2016-09-16 19:50 | MG ---
cc: JOHN VIRGEN Lab No: [id number] Date: 09/16/16 Age: 55 Sex: M Race: TECHNIQUE This is a 17 channel EEG. DESCRIPTION The background rhythm shows generalized slowing mainly in the delta frequency at roughly 3-4 Hz. The amplitude is about 20-30 microvolts. No epileptiform discharges are identified and no lateralizing features are seen. There is occasional muscle artifact present. Photic stimulation was done with a stepwise fashion but did not elicit any type of driving response. INTERPRETATION Abnormal study consistent with a severe encephalopathy. There are no epileptiform discharges present. John Virgen MD KRUPA/ANNIKA /4:51 PM /7:40 PM
[2016-09-16] MEDS: ACETAMINOPHEN 1000 MG/100 ML VIAL IV PRN (20:53)
[2016-09-17] VITALS (16 sets, daily range): BP systolic 140–161; BP diastolic 77–87; PULSE 101–121; RESP 11–20; TEMP 100.2–101.3; O2SAT 100
[2016-09-17] MEDS: oxyCODONE HCL ORAL CONC 20 MG/ML SYRINGE PO PRN ×6 (00:54→20:43)
[2016-09-17] MEDS: CHLORHEXIDINE GLUCONATE 2 % 1 PACK (2 CLOTHS) TOP SCH (04:28)
[2016-09-17 05:20] LABS: BLOOD GAS BASE EXCESS 2.4 mmol/L (-2-2); BLOOD GAS CARBOXYHEMOGLOBIN 1.9 % (0-4); BLOOD GAS HCO3 26 mmol/L (22-26); BLOOD GAS METHEMOGLOBIN 0.9 % (0-2); BLOOD GAS O2 HGB SATURATION 96 % (90-100); BLOOD GAS OXYGEN CONTENT 12.7 Vol % (12.0-20.0); BLOOD GAS PCO2 40 mmHg (38-42); BLOOD GAS PO2 127 mmHg (61-120); BLOOD GAS TOTAL HGB 9.2 G/DL (12.0-16.0); CRITICAL VALUE NO; OXYGEN DEVICE VENTILATOR; TEMP CORR TO 98.6
[2016-09-17 05:21] LABS: DRAW SITE ART LINE; FIO2 30 %; STAT NO; VENT SETTINGS PRVC/AC
--- NOTE | 2016-09-17 05:36 | RADRPT ---
EXAM DATE/TIME: 09/17/2016 04:21 [place] COMPARISON: CHEST SINGLE AP, September 16, 2016, 4:30. INDICATIONS : Shortness of breath, possible pulmonary disease. MEDICAL HISTORY : None. SURGICAL HISTORY : None. ENCOUNTER: Subsequent ACUITY: 4 - 6 days PAIN SCORE: Non-responsive. LOCATION: Bilateral chest FINDINGS: There is improving infiltrates in the right mid and lower lung with some residual infiltrate right pe rihilar and infrahilar region. There is also improved consolidation in the left lower lung with some residual patchy areas of non-consolidative infiltrate. Both hemidiaphragms are well delineated. Th e heart is normal in size. CONCLUSION: Improving bilateral lower lung infiltrates. Jude Martines MD on September 17, 2016 at 5:34 Board Certified Radiologist. This report was verified electronically.
[2016-09-17 05:50] LABS: APTT (PATIENT) 32.3 SEC (24.3-30.1); INTERNATIONAL NORMALIZED RATIO 0.9 RATIO; PROTHROMBIN TIME - PATIENT 10.4 SEC (9.8-11.6)
[2016-09-17 06:11] LABS: BICARBONATE 26.9 MEQ/L (21.0-32.0); POTASSIUM 4.2 MEQ/L (3.5-5.1)
[2016-09-17] MEDS ORDERED: LISI10TA3 PO (06:57)
[2016-09-17] MEDS ORDERED: CYCL1TAB29 PO (06:57)
[2016-09-17] MEDS ORDERED: HYDR-3366 PO (06:57)
[2016-09-17] MEDS ORDERED: LEVO.15 PO (06:57)
[2016-09-17] MEDS ORDERED: TAMS5CAP PO (06:57)
[2016-09-17 07:57] LABS: HEMATOCRIT 26.9 % (39.0-51.0); MEAN CELL VOLUME 83.9 FL (80.0-100.0); MEAN CORPUSCULAR HEMOGLOBIN 28.1 PG (27.0-34.0); MEAN CORPUSCULAR HGB CONC 33.5 % (32.0-36.0); PLATELET COUNT 183 TH/MM3 (150-450); RED CELL DISTRIBUTION WIDTH 17.4 % (11.6-17.2); REVIEW FLAG FINAL; WHITE BLOOD COUNT 11.5 TH/MM3 (4.0-11.0)
[2016-09-17] MEDS: CHLORHEXIDINE 0.12% (ORAL KIT) 15 ML CUP MT SCH ×2 (08:00→20:29)
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
[2016-09-17] MEDS: ACETAMINOPHEN 1000 MG/100 ML VIAL IV PRN ×2 (08:34→17:38)
[2016-09-17] MEDS: METOPROLOL TARTRATE 25 MG TAB PO SCH ×2 (08:34→20:43)
[2016-09-17] MEDS: DOCUSATE SODIUM 100 MG CAP PO SCH ×2 (08:34→20:44)
[2016-09-17] MEDS: PANTOPRAZOLE SODIUM 40 MG VIAL IV PUSH SCH (11:45)
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
[2016-09-17] MEDS: HEPARIN-D5W INJ 250 ML IV SCH (20:39)
[2016-09-17] MEDS ORDERED: chlorproMAZINE INJ 25 MG in SODIUM CHLORID 0.9% 500 ML INJ 500 ML IV ONE (23:00)
[2016-09-18] VITALS (19 sets, daily range): BP systolic 137–174; BP diastolic 75–101; PULSE 113–127; RESP 17–27; TEMP 100.4–102.6; O2SAT 98–100
[2016-09-18] MEDS: oxyCODONE HCL ORAL CONC 20 MG/ML SYRINGE PO PRN ×4 (00:11→21:53)
[2016-09-18] MEDS: ACETAMINOPHEN 1000 MG/100 ML VIAL IV PRN ×3 (00:11→21:52)
[2016-09-18] MEDS: CHLORHEXIDINE GLUCONATE 2 % 1 PACK (2 CLOTHS) TOP SCH (04:00)
[2016-09-18 04:29] LABS: MEAN CELL VOLUME 83.6 FL (80.0-100.0); MEAN CORPUSCULAR HGB CONC 33.5 % (32.0-36.0); PLATELET COUNT 223 TH/MM3 (150-450); RED BLOOD COUNT 3.35 MIL/MM3 (4.50-5.90); RED CELL DISTRIBUTION WIDTH 17.6 % (11.6-17.2); REVIEW FLAG FINAL; WHITE BLOOD COUNT 14.7 TH/MM3 (4.0-11.0)
[2016-09-18 04:42] LABS: APTT (PATIENT) 32.3 SEC (24.3-30.1)
[2016-09-18 04:54] LABS: BICARBONATE 26.4 MEQ/L (21.0-32.0)
--- NOTE | 2016-09-18 07:06 | PD.ORT.PN ---
Subjective Subjective Remarks Stable, no new changes Objective Vitals Vital Signs Date Time Temp Pulse Resp B/P Pulse Ox O2 Delivery O2 Flow Rate FiO2 09/18/16 06:20 30 09/18/16 06:11 30 09/18/16 06:00 119 09/18/16 04:27 100 30 09/18/16 04:00 113 09/18/16 04:00 30 09/18/16 04:00 100.9 113 24 137/75 100 09/18/16 02:00 115 09/18/16 01:40 100 30 09/18/16 00:00 30 09/18/16 00:00 127 09/18/16 00:00 102.6 127 24 155/84 100 09/17/16 22:27 100 30 09/17/16 22:00 121 09/17/16 20:48 100 30 09/17/16 20:00 100.6 118 16 161/87 100 09/17/16 20:00 118 09/17/16 20:00 30 09/17/16 17:02 100 30 09/17/16 16:00 100.6 106 11 144/79 100 09/17/16 16:00 103 09/17/16 12:01 100 30 09/17/16 12:00 101 09/17/16 12:00 100.2 101 12 147/84 100 09/17/16 11:54 30 09/17/16 11:50 30 09/17/16 11:19 100 30 09/17/16 08:56 100 30 09/17/16 08:48 100 30 09/17/16 08:00 116 09/17/16 08:00 101.3 116 20 140/77 100 09/17/16 08:00 30 I/O 09/17/16 09/17/16 09/17/16 09/18/16 09/18/16 09/18/16 07:00 15:00 23:00 07:00 15:00 23:00 Intake Total 679 ml 883 ml 1008 ml 825 ml Output Total 2700 ml 2620.0 ml 2050 ml 1100 ml Balance -2021 ml -1737.0 ml -1042 ml -275 ml Intake IV Total 239 ml 379 ml 341 ml 715 ml Tube Feeding 440 ml 504 ml 547 ml 110 ml Tube Irrigant 120 ml Output Urine Total 2700 ml 2300 ml 2050 ml 1100 ml Gastric Drainage Total 160 ml Tube Feeding Residual Discard 160.0 ml 0 ml # Bowel Movements 0 0 0 Result Diagram: 09/18/16 0400 09/18/16 0400 Imaging Last 24 hours Impressions Chest X-Ray 09/13/16 0600 Signed Impressions: Service Date/Time: Tuesday, September 13, 2016 01:48 - CONCLUSION: Suspected posterior layering small pleural effusions with bibasilar infiltrates. Jude Mast Jr., MD Objective Remarks BUE: splints intact. right wrist exfix in place with no drainage. LLE: +ankle exfix. proximal pin sites with bloody drainage. swelling 2+ pelvis: +exfix. minimal drainage. Assessment & Plan Assessment and Plan 1) Open Book Pelvis with left SI joint disruption 2) Bilateral Distal Radius fxs 3) Left Distal TibFib Fxs -pin care BID -maintain splints on wrists -daily dressing changes of left ankle and right wrist -will plan on definitive fixation when patient healthier. possibly this week if stable. May need to be prone for posterior pelvis and SI disruption. -sign consents ANNMARIE MANNING PA-C Sep 18, 2016 07:06
[2016-09-18] MEDS: CHLORHEXIDINE 0.12% (ORAL KIT) 15 ML CUP MT SCH ×2 (08:00→21:52)
[2016-09-18] MEDS: DOCUSATE SODIUM 100 MG CAP PO SCH ×2 (08:08→21:52)
[2016-09-18] MEDS: METOPROLOL TARTRATE 25 MG TAB PO SCH ×2 (08:08→21:52)
[2016-09-18] MEDS ORDERED: BISACODYL 10 MG SUPP RECTAL ONE (08:45)
[2016-09-18] MEDS ORDERED: LACTULOSE SYRUP 20 GM/30 ML CUP PO ONE (08:45)
[2016-09-18] MEDS ORDERED: MIDAZOLAM HCL 5 MG/ML VIAL (1 ML) ONE (09:23)
[2016-09-18] MEDS: PANTOPRAZOLE SODIUM 40 MG VIAL IV PUSH SCH (11:12)
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
[2016-09-18] MEDS ORDERED: CEFEPIME INJ 2,000 MG in SODIUM CHLORIDE 0.9% INJ 100 ML IV SCH (15:00)
[2016-09-18] MEDS ORDERED: Vancomycin Consult Pharmacy 1 EA IV SCH (15:00)
--- NOTE | 2016-09-18 15:43 | PD.PLAS.PN ---
Subjective Remarks Patient is lying in bed. He has not woken up since being taken off of sedation per the RN. Objective Vital Signs Date Time Temp Pulse Resp B/P Pulse Ox O2 Delivery O2 Flow Rate FiO2 09/18/16 12:32 100 35 09/18/16 12:00 100.4 115 27 150/84 100 09/18/16 12:00 35 09/18/16 12:00 115 09/18/16 10:00 113 09/18/16 08:02 98 30 09/18/16 08:00 35 09/18/16 08:00 127 09/18/16 08:00 102.6 127 17 146/82 100 09/18/16 06:20 30 09/18/16 06:11 30 09/18/16 06:00 119 09/18/16 04:27 100 30 09/18/16 04:00 113 09/18/16 04:00 30 09/18/16 04:00 100.9 113 24 137/75 100 09/18/16 02:00 115 09/18/16 01:40 100 30 09/18/16 00:00 30 09/18/16 00:00 127 09/18/16 00:00 102.6 127 24 155/84 100 09/17/16 22:27 100 30 09/17/16 22:00 121 09/17/16 20:48 100 30 09/17/16 20:00 100.6 118 16 161/87 100 09/17/16 20:00 118 09/17/16 20:00 30 09/17/16 17:02 100 30 09/17/16 16:00 100.6 106 11 144/79 100 09/17/16 16:00 103 I/O 09/17/16 09/17/16 09/17/16 09/18/16 09/18/16 09/18/16 07:00 15:00 23:00 07:00 15:00 23:00 Intake Total 679 ml 883 ml 1008 ml 825 ml Output Total 2700 ml 2620.0 ml 2050 ml 1100 ml Balance -2021 ml -1737.0 ml -1042 ml -275 ml Intake IV Total 239 ml 379 ml 341 ml 715 ml Tube Feeding 440 ml 504 ml 547 ml 110 ml Tube Irrigant 120 ml Output Urine Total 2700 ml 2300 ml 2050 ml 1100 ml Gastric Drainage Total 160 ml Tube Feeding Residual Discard 160.0 ml 0 ml # Bowel Movements 0 0 0 Laboratory Tests Test 09/18/16 04:00 White Blood Count 14.7 Red Blood Count 3.35 Hemoglobin 9.4 Hematocrit 28.0 Mean Corpuscular Volume 83.6 Mean Corpuscular Hemoglobin 28.0 Mean Corpuscular Hemoglobin 33.5 Concent Red Cell Distribution Width 17.6 Platelet Count 223 Mean Platelet Volume 8.0 Activated Partial 32.3 Thromboplast Time Sodium Level 140 Potassium Level 4.0 Chloride Level 108 Carbon Dioxide Level 26.4 Anion Gap 6 Blood Urea Nitrogen 24 Creatinine 0.98 Estimat Glomerular Filtration 79 Rate Random Glucose 129 Calcium Level 8.7 Date/Time Procedure Status Source Growth 09/18/16 12:20 Aerobic Blood Culture Received Blood Line Pending 09/18/16 12:20 Anaerobic Blood Culture Received Blood Line Pending 09/16/16 11:00 Aerobic Blood Culture - Preliminary Resulted Blood Peripheral NO GROWTH IN 2 DAYS 09/16/16 11:00 Anaerobic Blood Culture - Final Resulted Blood Peripheral QNS - SEE AEROBE REPORT 09/16/16 11:00 Blood Fungal Culture Resulted Blood Peripheral Pending 09/16/16 11:00 Blood Fungal Culture - Final Resulted Blood Peripheral 09/16/16 09:50 Urine Culture - Final Complete Urine Catheterized Urine NO GROWTH IN 48 HOURS. 09/16/16 09:20 Gram Stain - Final Resulted Sputum Endotracheal 09/16/16 09:20 Sputum Culture - Preliminary Resulted Pseudomonas Species Beta Strep Not Group A 09/16/16 09:20 Acid Fast Stain - Final Resulted Sputum Endotracheal NO ACID FAST BACILLI SEEN 09/16/16 09:20 Mycobacterial Culture Resulted Sputum Endotracheal Pending Result Diagram: 09/18/16 0400 09/18/16 0400 Exam Findings Wounds of the right periorbital area are healing well. There is no evidence of infection or drainage. Swelling is significantly reduced. Assessment and Plan Diagnosis: (1) Laceration of face, complicated Plan: Wounds are healing well. Ophthalmic bacitracin is applied to suture lines. Discussed with RN and . Sharona Robbins Sep 18, 2016 15:43
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
[2016-09-18] MEDS: CEFEPIME INJ 2,000 MG in SODIUM CHLORIDE 0.9% INJ 100 ML IV SCH ×2 (17:25→23:48)
[2016-09-18] MEDS: VANCOMYCIN INJ 1,600 MG in SODIUM CHLORID 0.9% 500 ML INJ 500 ML IV SCH (17:25)
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
--- NOTE | 2016-09-18 17:41 | ETE ---
Study Study Date:09/18/2016 STUDY CONCLUSIONS SUMMARY - Left ventricle: The cavity size was normal. Systolic function was normal. The estimated ejection fraction was in the range of 55% to 60%. - Mitral valve: Mild regurgitation. - Atrial septum: No defect or patent foramen ovale was identified. - Tricuspid valve: No evidence of echo density. Impressions: Multiple views of the tricuspid valve, right atrium and right ventricle, no echo density noted. If LV function is below 40, please consider prescribing an ACEI or ARB or document rationale for non-use. PROCEDURE DATA Consent: The risks, benefits, and alternatives to the procedure were explained to the patient'swifeand informed consent was obtained. Procedure: Initial setup. Intravenous access was obtained. Surface ECG leads and pulse oximetric signals were monitored. Sedation. Conscious sedation was administered by cardiology staff. Transesophageal echocardiography. A transesophageal probe was inserted by the attending portrait consultant. Image quality was good. Study completion: All IVs inserted during the procedure were removed. The patient tolerated the procedure well. There were no complications. Transesophageal echocardiography. 2D, complete spectral Doppler, and color Doppler. CARDIAC ANATOMY LEFT VENTRICLE: The cavity size was normal. Systolic function was normal. The estimated ejection fraction was in the range of 55% to 60%. AORTIC VALVE: The valve appears to be grossly normal. Doppler: There was no stenosis. No significant regurgitation. AORTA: The aorta was normal and not dilated. - There was no evidence for dissection. MITRAL VALVE: The valve appears to be grossly normal. Doppler: There was no evidence for stenosis. Mild regurgitation. LEFT ATRIUM: The atrium was normal in size. ATRIAL SEPTUM: No defect or patent foramen ovale was identified. RIGHT VENTRICLE: The cavity size was normal. Systolic function was normal. PULMONIC VALVE: The valve appears to be grossly normal. Doppler: There was no evidence for stenosis. Trace to mild regurgitation directed centrally. TRICUSPID VALVE: The valve appears to be grossly normal. No evidence of echo density. Doppler: There was no evidence for stenosis. Trace regurgitation. PERICARDIUM: There was no pericardial effusion. Prepared and signed by Jaswant Cabello [id number]
[2016-09-18] MEDS ORDERED: fentaNYL 2,500 MCG/NS 250 ML IV SCH (23:15)
[2016-09-18] MEDS: PROPOFOL 1000 MG/100 ML IV SCH (23:47)
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
[2016-09-19] VITALS (18 sets, daily range): BP systolic 99–129; BP diastolic 57–72; PULSE 106–110; RESP 18–25; TEMP 100.6–101.5; O2SAT 97–100
[2016-09-19] MEDS: CHLORHEXIDINE GLUCONATE 2 % 1 PACK (2 CLOTHS) TOP SCH (04:00)
[2016-09-19] MEDS: oxyCODONE HCL ORAL CONC 20 MG/ML SYRINGE PO PRN ×2 (05:04→22:54)
[2016-09-19] MEDS: VANCOMYCIN INJ 1,600 MG in SODIUM CHLORID 0.9% 500 ML INJ 500 ML IV SCH ×2 (05:04→16:25)
[2016-09-19] MEDS: PROPOFOL 1000 MG/100 ML IV SCH ×5 (05:17→22:54)
[2016-09-19 05:24] LABS: HEMATOCRIT 28.3 % (39.0-51.0); MEAN CELL VOLUME 83.6 FL (80.0-100.0); MEAN CORPUSCULAR HGB CONC 33.5 % (32.0-36.0); PLATELET COUNT 339 TH/MM3 (150-450); RED BLOOD COUNT 3.39 MIL/MM3 (4.50-5.90); RED CELL DISTRIBUTION WIDTH 17.9 % (11.6-17.2); REVIEW FLAG FINAL; WHITE BLOOD COUNT 21.3 TH/MM3 (4.0-11.0)
[2016-09-19 05:56] LABS: BICARBONATE 24.5 MEQ/L (21.0-32.0); MAGNESIUM 2.3 MG/DL (1.5-2.5); POTASSIUM 3.9 MEQ/L (3.5-5.1)
[2016-09-19 06:00] LABS: BLOOD GAS BASE EXCESS -1.8 mmol/L (-2-2); BLOOD GAS CARBOXYHEMOGLOBIN 1.7 % (0-4); BLOOD GAS HCO3 22 mmol/L (22-26); BLOOD GAS METHEMOGLOBIN 0.8 % (0-2); BLOOD GAS O2 HGB SATURATION 95 % (90-100); BLOOD GAS OXYGEN CONTENT 14.1 Vol % (12.0-20.0); BLOOD GAS PCO2 35 mmHg (38-42); BLOOD GAS PO2 93 mmHg (61-120); BLOOD GAS TOTAL HGB 10.5 G/DL (12.0-16.0); TEMP CORR TO 98.6
--- NOTE | 2016-09-19 06:00 | RADRPT ---
EXAM DATE/TIME: 09/19/2016 05:03 [place] COMPARISON: CHEST SINGLE AP, September 17, 2016, 4:21. INDICATIONS : Short of breath. MEDICAL HISTORY : None. SURGICAL HISTORY : None. ENCOUNTER: Subsequent ACUITY: 1 week PAIN SCORE: Non-responsive. LOCATION: Bilateral chest FINDINGS: A single view of the chest demonstrates unchanged position of endotracheal tube and nasogastric tube. Worsening right basilar consolidation. The cardiomediastinal contours are unremarkable. Osseous st ructures are intact. CONCLUSION: Worsening right basilar consolidation. Hadley Dutton MD on September 19, 2016 at 5:57 Board Certified Radiologist. This report was verified electronically.
[2016-09-19 06:01] LABS: CRITICAL VALUE NO; DRAW SITE ART LINE; FIO2 40 %; OXYGEN DEVICE VENTILATOR; STAT NO
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
--- NOTE | 2016-09-19 07:20 | PD.ORT.PN ---
Subjective Subjective Remarks POD 6 s/p exfix pelvis, right wrist, left ankle s/p left SI disruption s/p left wrist fx intubated/sedated family has decided to proceed with palliative care Objective Vitals Vital Signs Date Time Temp Pulse Resp B/P Pulse Ox O2 Delivery O2 Flow Rate FiO2 09/19/16 06:00 107 09/19/16 04:20 98 40 09/19/16 04:00 100.9 110 24 106/65 98 09/19/16 04:00 110 09/19/16 04:00 40 09/19/16 02:00 110 09/19/16 02:00 40 09/19/16 01:31 100 40 09/19/16 00:00 100.8 106 21 104/62 100 09/19/16 00:00 106 09/19/16 00:00 35 09/18/16 22:00 126 09/18/16 21:45 99 100 09/18/16 21:09 100 35 09/18/16 20:00 35 09/18/16 20:00 122 09/18/16 20:00 101.8 122 22 154/82 100 09/18/16 20:00 122 09/18/16 18:00 122 09/18/16 17:54 100 35 09/18/16 16:00 100.8 123 26 174/101 100 09/18/16 16:00 35 09/18/16 16:00 123 09/18/16 14:00 119 09/18/16 12:32 100 35 09/18/16 12:00 100.4 115 27 150/84 100 09/18/16 12:00 35 09/18/16 12:00 115 09/18/16 10:00 113 09/18/16 08:02 98 30 09/18/16 08:00 35 09/18/16 08:00 127 09/18/16 08:00 102.6 127 17 146/82 100 I/O 09/18/16 09/18/16 09/18/16 09/19/16 09/19/16 09/19/16 07:00 15:00 23:00 07:00 15:00 23:00 Intake Total 825 ml 301 ml 882 ml 903 ml Output Total 1100 ml 1325 ml 950 ml 350 ml Balance -275 ml -1024 ml -68 ml 553 ml Intake IV Total 715 ml 301 ml 882 ml 903 ml Tube Feeding 110 ml 0 ml Output Urine Total 1100 ml 1325 ml 950 ml 350 ml # Bowel Movements 0 0 1 0 Result Diagram: 09/19/168 09/19/16 0508 Imaging Last 24 hours Impressions Chest X-Ray 09/13/16 0600 Signed Impressions: Service Date/Time: Tuesday, September 13, 2016 01:48 - CONCLUSION: Suspected posterior layering small pleural effusions with bibasilar infiltrates. Jude Mast Jr., MD Objective Remarks BUE: splints intact. right wrist exfix in place with no drainage. LLE: +ankle exfix. proximal pin sites with bloody drainage. swelling 2+ pelvis: +exfix. minimal drainage. Assessment & Plan Assessment and Plan 1) Open Book Pelvis with left SI joint disruption 2) Bilateral Distal Radius fxs 3) Left Distal TibFib Fxs -pin care BID -maintain splints on wrists -daily dressing changes of left ankle and right wrist -had discussion with family in regards to orthopaedic injuries. if moving to palliative care, we will not proceed with any definitive ortho fixation. will discuss with Dr Colunga the possibility of removing external fixators at bedside. possibility of doing such in next couple days. Jamshid Parish Sep 19, 2016 07:20
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
[2016-09-19] MEDS: DOCUSATE SODIUM 100 MG CAP PO SCH ×2 (08:54→20:03)
[2016-09-19] MEDS: CEFEPIME INJ 2,000 MG in SODIUM CHLORIDE 0.9% INJ 100 ML IV SCH ×3 (08:54→22:58)
[2016-09-19] MEDS: CHLORHEXIDINE 0.12% (ORAL KIT) 15 ML CUP MT SCH ×2 (08:55→20:03)
[2016-09-19] MEDS: FUROSEMIDE 20 MG/2 ML VIAL IV PUSH SCH (08:55)
[2016-09-19] MEDS: METOPROLOL TARTRATE 25 MG TAB PO SCH ×2 (09:18→20:02)
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
[2016-09-19] MEDS: PANTOPRAZOLE SODIUM 40 MG VIAL IV PUSH SCH (12:29)
[2016-09-19] MEDS: ACETAMINOPHEN 1000 MG/100 ML VIAL IV PRN (12:29)
[2016-09-19] MEDS: HEPARIN-D5W INJ 250 ML IV SCH (12:56)
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
[2016-09-20] VITALS (18 sets, daily range): BP systolic 99–122; BP diastolic 55–69; PULSE 101–120; RESP 20–29; TEMP 98.7–101.3; O2SAT 93–99
[2016-09-20] MEDS: PROPOFOL 1000 MG/100 ML IV SCH ×5 (03:10→22:51)
[2016-09-20] MEDS: CHLORHEXIDINE GLUCONATE 2 % 1 PACK (2 CLOTHS) TOP SCH ×2 (04:00→20:19)
[2016-09-20] MEDS ORDERED: PHARMACY ORDERED LAB XX ONE (04:45)
[2016-09-20] MEDS: VANCOMYCIN INJ 1,600 MG in SODIUM CHLORID 0.9% 500 ML INJ 500 ML IV SCH (05:26)
[2016-09-20] MEDS: CHLORHEXIDINE 0.12% (ORAL KIT) 15 ML CUP MT SCH ×2 (08:00→22:02)
[2016-09-20] MEDS: METOPROLOL TARTRATE 25 MG TAB PO SCH ×2 (09:00→22:02)
[2016-09-20] MEDS: FUROSEMIDE 20 MG/2 ML VIAL IV PUSH SCH (09:24)
[2016-09-20] MEDS: CEFEPIME INJ 2,000 MG in SODIUM CHLORIDE 0.9% INJ 100 ML IV SCH ×2 (10:16→16:32)
[2016-09-20] MEDS: PANTOPRAZOLE SODIUM 40 MG VIAL IV PUSH SCH (11:06)
--- NOTE | 2016-09-20 11:51 | PD.ORT.PN ---
Subjective Subjective Remarks POD 7 s/p exfix pelvis, right wrist, left ankle s/p left SI disruption s/p left wrist fx intubated/sedated family has decided to proceed with palliative care Objective Vitals Vital Signs Date Time Temp Pulse Resp B/P Pulse Ox O2 Delivery O2 Flow Rate FiO2 09/20/16 10:00 102 09/20/16 08:00 103 09/20/16 08:00 100.8 102 20 116/62 98 09/20/16 08:00 40 09/20/16 07:48 98 40 09/20/16 06:00 101 09/20/16 04:00 101.3 105 22 105/58 98 09/20/16 04:00 105 09/20/16 04:00 40 09/20/16 03:51 98 40 09/20/16 02:00 106 09/20/16 00:44 99 40 09/20/16 00:00 103 09/20/16 00:00 101.3 103 22 99/55 98 09/20/16 00:00 40 09/19/16 22:00 106 09/19/16 20:00 106 09/19/16 20:00 40 09/19/16 20:00 101.3 106 25 129/72 100 09/19/16 19:58 97 40 09/19/16 18:00 108 09/19/16 16:00 107 09/19/16 16:00 100.8 107 22 113/63 97 09/19/16 16:00 40 09/19/16 15:00 97 40 09/19/16 14:00 106 09/19/16 12:00 101.5 108 21 116/70 97 09/19/16 12:00 40 09/19/16 12:00 108 I/O 09/19/16 09/19/16 09/19/16 09/20/16 09/20/16 09/20/16 07:00 15:00 23:00 07:00 15:00 23:00 Intake Total 1434 ml 1065 ml 762 ml Output Total 1775 ml 950 ml 600 ml Balance -341 ml 115 ml 162 ml Intake IV Total 1434 ml 1065 ml 762 ml Output Urine Total 1775 ml 950 ml 600 ml # Bowel Movements 0 0 0 Result Diagram: 09/19/16 0508 09/19/16 0508 Imaging Last 24 hours Impressions Chest X-Ray 09/13/16 0600 Signed Impressions: Service Date/Time: Tuesday, September 13, 2016 01:48 - CONCLUSION: Suspected posterior layering small pleural effusions with bibasilar infiltrates. Jude Mast Jr., MD Objective Remarks BUE: splints intact. right wrist exfix in place with no drainage. LLE: +ankle exfix. proximal pin sites with bloody drainage. swelling 2+ pelvis: +exfix. minimal drainage. Assessment & Plan Assessment and Plan 1) Open Book Pelvis with left SI joint disruption 2) Bilateral Distal Radius fxs 3) Left Distal TibFib Fxs -planned withdrawal of care tomorrow -if patient expires with withdrawal of care, will remove external fixators at bedside. [employer] are aware of situation and will be ready to remove exfix's if the time comes. -family aware Jamshid Parish Sep 20, 2016 11:51
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
[2016-09-20] MEDS ORDERED: MORPHINE SULFATE 8 MG/ML INJ IV PUSH ONE (18:30)
[2016-09-20] MEDS ORDERED: HYOSCYAMINE 0.5 MG/ML AMP IVP ONE (18:30)
[2016-09-20] MEDS ORDERED: LORazepam 2 MG/ML VIAL IV PUSH ONE (18:30)
[2016-09-20] MEDS: DOCUSATE SODIUM 100 MG CAP PO SCH (21:00)
[2016-09-21] VITALS (7 sets, daily range): BP systolic 94–101; BP diastolic 51–69; PULSE 112–115; RESP 25–31; TEMP 99–99.6; O2SAT 74–95
[2016-09-21] MEDS: CEFEPIME INJ 2,000 MG in SODIUM CHLORIDE 0.9% INJ 100 ML IV SCH (00:06)
[2016-09-21] MEDS: PROPOFOL 1000 MG/100 ML IV SCH (00:06)
[2016-09-21] MEDS: LORazepam 2 MG/ML VIAL IV PUSH PRN ×7 (02:42→10:08)
[2016-09-21] MEDS: MORPHINE SULFATE 8 MG/ML INJ IV PUSH PRN ×7 (02:42→10:08)
[2016-09-21] MEDS: VANCOMYCIN INJ 1,600 MG in SODIUM CHLORID 0.9% 500 ML INJ 500 ML IV SCH (05:00)
[2016-09-21] MEDS: FUROSEMIDE 20 MG/2 ML VIAL IV PUSH SCH (09:00)
[2016-09-21] MEDS: METOPROLOL TARTRATE 25 MG TAB PO SCH (09:00)
[2016-09-21] MEDS ORDERED: HYOSCYAMINE 0.5 MG/ML AMP IVP PRN (09:15)
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
[2016-09-21] MEDS ORDERED: MORPHINE SULFATE 4 MG/ML INJ IV PUSH SCH (10:15)
[2016-09-21] MEDS ORDERED: LORazepam 2 MG/ML VIAL IV PUSH SCH (10:15)
[2016-09-21] MEDS ORDERED: LORazepam 2 MG/ML VIAL IV PUSH PRN ×2 (10:15→10:30)
[2016-09-21] MEDS ORDERED: MORPHINE SULFATE 8 MG/ML INJ IV PUSH PRN (10:30)
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
[2016-09-26 09:06] LABS: STAT NO
== END 2016-09-21 16:50 | disposition expired | DRG 957 ==
LOC: NEPI 06:10 → MERGE 07:10 → EDBD 07:10 → NEDA 07:10 → N03A 08:11
PROVIDERS: ADMIT Surgery; ATTEND Surgery
PROC: 5A1955Z Respiratory Ventilation, Greater than 96 Consecutive Hours (ICD-10-PCS; 2016-09-12)
PROC: 04LF3DZ Occlusion of Left Internal Iliac Artery with Intraluminal Device, Percutaneous Approach (ICD-10-PCS; 2016-09-12)
PROC: 04LE3DZ Occlusion of Right Internal Iliac Artery with Intraluminal Device, Percutaneous Approach (ICD-10-PCS; 2016-09-12)
PROC: 0BH17EZ Insertion of Endotracheal Airway into Trachea, Via Natural or Artificial Opening (ICD-10-PCS; 2016-09-12)
PROC: 6A550Z2 Pheresis of Platelets, Single (ICD-10-PCS; 2016-09-12)
PROC: 30233K1 Transfusion of Nonautologous Frozen Plasma into Peripheral Vein, Percutaneous Approach (ICD-10-PCS; 2016-09-12)
PROC: 30233N1 Transfusion of Nonautologous Red Blood Cells into Peripheral Vein, Percutaneous Approach (ICD-10-PCS; 2016-09-12)
PROC: 0T9B70Z Drainage of Bladder with Drainage Device, Via Natural or Artificial Opening (ICD-10-PCS; 2016-09-12)
PROC: 0QS235Z Reposition Right Pelvic Bone with External Fixation Device, Percutaneous Approach (ICD-10-PCS; 2016-09-13)
PROC: 03HY32Z Insertion of Monitoring Device into Upper Artery, Percutaneous Approach (ICD-10-PCS; 2016-09-13)
PROC: 0QSHXZZ Reposition Left Tibia, External Approach (ICD-10-PCS; 2016-09-13)
PROC: 0QSJXZZ Reposition Right Fibula, External Approach (ICD-10-PCS; 2016-09-13)
PROC: 0PSHXZZ Reposition Right Radius, External Approach (ICD-10-PCS; 2016-09-13)
PROC: 0RSNXZZ Reposition Right Wrist Joint, External Approach (ICD-10-PCS; 2016-09-13)
PROC: 0SSGXZZ Reposition Left Ankle Joint, External Approach (ICD-10-PCS; 2016-09-13)
PROC: 08QQXZZ Repair Right Lower Eyelid, External Approach (ICD-10-PCS; 2016-09-13)
PROC: 08QNXZZ Repair Right Upper Eyelid, External Approach (ICD-10-PCS; 2016-09-13)
PROC: 0HQ1XZZ Repair Face Skin, External Approach (ICD-10-PCS; 2016-09-13)
PROC: 0PSH35Z Reposition Right Radius with External Fixation Device, Percutaneous Approach (ICD-10-PCS; principal; 2016-09-13 10:41)
PROC: 0QS335Z Reposition Left Pelvic Bone with External Fixation Device, Percutaneous Approach (ICD-10-PCS; 2016-09-13 10:41)
PROC: 06H03DZ Insertion of Intraluminal Device into Inferior Vena Cava, Percutaneous Approach (ICD-10-PCS; 2016-09-14)
PROC: B246ZZ4 Ultrasonography of Right and Left Heart, Transesophageal (ICD-10-PCS; 2016-09-18)
DX: S52.571B Other intraarticular fracture of lower end of right radius, initial encounter for open fracture type I or II (principal); D65 Disseminated intravascular coagulation [defibrination syndrome]; S32.811A Multiple fractures of pelvis with unstable disruption of pelvic ring, initial encounter for closed fracture; I21.4 Non-ST elevation (NSTEMI) myocardial infarction; J96.91 Respiratory failure, unspecified with hypoxia; T79.4XXA Traumatic shock, initial encounter; J90 Pleural effusion, not elsewhere classified; J18.9 Pneumonia, unspecified organism; G93.40 Encephalopathy, unspecified; G93.1 Anoxic brain damage, not elsewhere classified; N17.9 Acute kidney failure, unspecified; S32.10XA Unspecified fracture of sacrum, initial encounter for closed fracture; S32.810A Multiple fractures of pelvis with stable disruption of pelvic ring, initial encounter for closed fracture; Z99.11 Dependence on respirator [ventilator] status; D62 Acute posthemorrhagic anemia; M62.82 Rhabdomyolysis; S52.612A Displaced fracture of left ulna styloid process, initial encounter for closed fracture; I51.3 Intracardiac thrombosis, not elsewhere classified; S82.402A Unspecified fracture of shaft of left fibula, initial encounter for closed fracture; I10 Essential (primary) hypertension; S02.2XXA Fracture of nasal bones, initial encounter for closed fracture; S52.572A Other intraarticular fracture of lower end of left radius, initial encounter for closed fracture; V23.4XXA Motorcycle driver injured in collision with car, pick-up truck or van in traffic accident, initial encounter; Y92.488 Other paved roadways as the place of occurrence of the external cause; Y93.89 Activity, other specified; N40.0 Benign prostatic hyperplasia without lower urinary tract symptoms; G89.29 Other chronic pain; M54.5 Low back pain; E03.9 Hypothyroidism, unspecified; M19.90 Unspecified osteoarthritis, unspecified site; S82.302A Unspecified fracture of lower end of left tibia, initial encounter for closed fracture; S82.832A Other fracture of upper and lower end of left fibula, initial encounter for closed fracture; S93.05XA Dislocation of left ankle joint, initial encounter; S63.094A Other dislocation of right wrist and hand, initial encounter; S01.81XA Laceration without foreign body of other part of head, initial encounter; I46.9 Cardiac arrest, cause unspecified; I34.0 Nonrheumatic mitral (valve) insufficiency; S01.111A Laceration without foreign body of right eyelid and periocular area, initial encounter; S01.411A Laceration without foreign body of right cheek and temporomandibular area, initial encounter; M50.321 Other cervical disc degeneration at C4-C5 level; I08.1 Rheumatic disorders of both mitral and tricuspid valves; F17.200 Nicotine dependence, unspecified, uncomplicated; Z66 Do not resuscitate; Z51.5 Encounter for palliative care; Z86.73 Personal history of transient ischemic attack (TIA), and cerebral infarction without residual deficits; Z80.0 Family history of malignant neoplasm of digestive organs; Z80.1 Family history of malignant neoplasm of trachea, bronchus and lung; E83.42 Hypomagnesemia; E83.51 Hypocalcemia; J44.9 Chronic obstructive pulmonary disease, unspecified
CPT/HCPCS: 25605; 27840; 31500; 36245; 36246; 36247; 36248; 36430; 36556; 36600; 37191; 37244; 51702; 70450; 71010; 71260; 72125; 72128; 72131; 72170; 72190; 73100; 73551; 73600; 73700; 74177; 75625; 75736; 75774; 75898; 76000; 76937; 80048; 80053; 80170; 80202; 82435; 82550; 82552; 82565; 82805; 82947; 82948; 83605; 83735; 84132; 84155; 84295; 84436; 84443; 84484; 84520; 85014; 85018; 85025; 85027; 85384; 85610; 85730; 86403; 86850; 86900; 86901; 86920; 86927; 86965; 87015; 87040; 87070; 87077; 87086; 87103; 87116; 87186; 87205; 87206; 87641; 90471; 92950; 93005; 93306; 93312; 93320; 93325; 94002; 94003; 94640; 94664; 95819; 96374; 96375; 99291; C1713; C1769; C1880; C1887; C1894; C9113; C9132; G0390; J0131; J0171; J0610; J0690; J0692; J1580; J1644; J1815; J1940; J1980; J2060; J2250; J2270; J2405; J3010; J3230; J3370; J3475; J7040; J7050; J7120; L0150; L0172; P9016; P9017; P9035; Q9967